=== PATIENT | female | born 1980 | race Caucasian/White ===

== ENCOUNTER → 2018-07-29 03:20 | Observation (INO) ==
[2018-07-29 01:01] LABS: Bilirubin,Urine Negative (Negative); Blood,Urine Large (Negative); Clarity,Urine Turbid (Clear); Color,Urine Yellow (Yellow); Glucose,Urine (UA) Normal (Normal); Ketones,Urine Negative (Negative); Leukocyte Esterase,Urine Trace (Negative); Nitrite,Urine Negative (Negative); PH,Urine 6.5 pH Units (5.0-8.0); Protein,Urine Trace mg/dL (Neg-Trace); Specific Gravity,Urine 1.015 (1.010-1.025); Urobilinogen,Urine Normal (Normal)
[2018-07-29 01:09] LABS: Amphetamine Screen,Urine Negative ng/mL (Cutoff=1000); Barbiturate Screen,Urine Negative ng/mL (Cutoff=200); Benzodiazepines Screen,Urine Negative ng/mL (Cutoff=200); Cannabinoid Screen,Urine Negative ng/mL (Cutoff = 50); Cocaine Screen,Urine Negative ng/mL (Cutoff= 300); Opiate Screen,Urine Negative ng/mL (Cutoff=300); Phencyclidine Screen,Urine Negative ng/mL (Cutoff=25)
[2018-07-29 01:21] LABS: RBC,Urine 30-50 per hpf (0-3); Squamous Epithelial Cell,Urine Many per lpf (None-Few)
--- NOTE | 2018-07-29 01:50 | OB/GYN History & Physical ---
Date of Encounter: 08/01/18 Time of Encounter: 01:30 Assessment and Plan (1) Vaginal bleeding Status: Acute 38yo at 34+5wks GA who presents with vaginal bleeding 1. Vaginal bleeding - hx of low-lying placenta, resolved on 07/01 - patient seen by MFM at [facility] [place] [facility] [place], next appt today at 11AM - reports to have bled through 1 panty liner - denies leaking of fluid, not currently with vaginal bleeding - denies contraction(s), reports active fetus - denies recent intercourse or vaginal penetration - SSE with dark brown (old blood in vault), no active bleeding - TAUS performed, posterior placenta,normal appearing without placental hemorrhage - subjectively normal fluid, active fetus - ABO: A positive, will hold on labs given normal VS and no active vaginal bleeding 2. MWB - normotensive - VSS, HDS, afebrile - UTD PNC with 3. FWB - RNST for GA - S = D - posterior placenta Dispo: Patient kept on CEFM for 3hr. If RNST, OK to DC patient to home with plan to KEEP OB appt with MFM today at 11AM. Recommended pelvic rest given recent vaginal bleeding. Unable to appreciate abnormality in TAUS despite inadequate quality images. Color Doppler placed between head and cervix - no vasculature appreciated. Patient given precaution(s). Will have patient f /u in office with Dr. Kaur this week. 3hr strip was R&R for GA. moderate variability, excellent movement. She continued to have no active vaginal bleeding during her EFM. Patient was DC to home with F/U in the office scheduled later this week. MD BOGDAN History of Present Illness Chief complaint: Vaginal bleeding HPI: Ms. Peng is a 38 year old female at 34+6wks GA who presents with vaginal bleeding. Patient reports hx of vaginal bleeding during 1st and 2nd TM, last bleed appreciated at 20wks GA. Was told to have had a partial previa that was followed by MFM at [facility] [place]. Most recent US was performed by MFM on 07/01, showing a portion of the placenta in the lower uterine segment, and at closest measurement - 2cm away from the cervical os. head was well-applied at that time as there was no concern for placenta previa nor partial previa. The paitent was told to f/u with MFM in 4 weeks for repeat US, but was otherwise given no precaution(S). This pregancy is complicated by PCOS ( patientis on metformin 5000mg daily) and metoprolol. She is followed closely by Dr. Real and aside from this (now resolved diagnosis) of a low-lying placenta, she is otherwise obstetrically uncomplicated. Her OBHX is consistent with full term vaginal deliveries, as she plans to move forward with a this as well. The patient is scheduled for a repeat US with MFM today (11AM) in [place] at [facility] [place]. Denies ZAMARRIPA/CP/SOB. Normotensive. VSS, HDS, afebrile. Past Med Surg Social Fam HX - Past Medical History Source: patient Medical history: no medical history, non-contributory Additional medical history: PCOS - on metformin daily (5000mg). PIH - metoprolol (unsure of dose) Psychiatric history: no psych history - Past Surgical History Surgical History: cholecystectomy - Social History Smoking Status: Never smoker Smokeless Tobacco Status: No Alcohol use: none Drug use: none - Family History Father Living Status: Obstetrical History - Pregnancies : 5 Para: 2 Term: 2 Ab's: 2 Livin Medications and Allergies Metformin HCl [Metformin HCl ER] 500 mg PO 02/03/16 [History] Ondansetron HCl [Zofran] 4 mg PO TID PRN #10 tablet 02/03/16 [Rx] One Daily Tablet 1 mg PO DAILY 07/29/18 [History] 3 Allergy/AdvReac Type Severity Reaction Status Date / Time No Known Allergies Allergy Verified 02/03/16 12:50 Exam - Constitutional Constitutional: well developed - Neck Neck exam: full ROM - Lungs Respiratory exam: CTAB - Cardiovascular Cardiovascular exam: RRR - Abdomen Abdomen: Present: gravid, non tender - Extremities Extremities exam: radial pulses palpable and symmetrical - Vagina Vagina: Present: normal moisture - Cervix Dilation: 0 Effacement: 50 Station: -3 - Comments Comments: abdominal exam: nonTTP, gravid, S = D pelvic: SSE performed with light, dark red/brown blood appreciated. No active bleeding in vault. SVE performed: cl/th/hi. TAUS performed: vertex presentation with subjectively normal fluid. head well-applied. NO previa appreciated. Posterior placenta visualized. Results Result Diagrams: 07/29/18 02:13 Abnormal lab results Urine Clarity Turbid (Clear) A 07/29/18 00:47 Urine Blood Large (Negative) H 07/29/18 00:47 Ur Leukocyte Esterase Trace (Negative) H 07/29/18 00:47 Urine Microscopic RBC 30-50 per hpf (0-3) H 07/29/18 00:47 Urine Microscopic WBC 3-5 per hpf (0-3) H 07/29/18 00:47 Ur Squamous Epith Cells Many per lpf (None-Few) H 07/29/18 00:47 Ur Culture Indicated? NO. (NO) A 07/29/18 00:47 All other labs normal. - VTE Reasons for not Prescribing Prophylaxis: Treatment not Indicated - Low risk for VTE
[2018-07-29 02:24] LABS: Hemoglobin 12.5 g/dL (11.5-15.4); Mean Corpuscular HGB Conc 35.7 g/dL (31.6-35.5); Mean Corpuscular Hemoglobin 32.7 pg (28.0-33.3); Mean Corpuscular Volume 91.6 fL (83.0-100.0); Platelet Count 200 K/mcL (140-400); Red Blood Count 3.82 M/mcL (3.82-4.97); Red Cell Distribution Width 14.2 % (11.5-14.5)
== END | disposition home or self-care (01) ==
LOC: 1NENULAB
PROVIDERS: ADMIT Obstetrics & Gynecology; ATTEND Obstetrics & Gynecology

== ENCOUNTER 2018-08-15 22:00 | Inpatient (IN) ==
[2018-08-15] MEDS ORDERED: miSOPROStol 25 MCG TABLET PO PRN (22:55)
[2018-08-15] MEDS ORDERED: Famotidine 20 MG/2 ML VIAL IVP PRN (22:55)
[2018-08-15] MEDS ORDERED: Metoclopramide 10 MG/2 ML VIAL IVP PRN (22:55)
[2018-08-15] MEDS ORDERED: Ondansetron 4 MG/2 ML VIAL IVP PRN (22:55)
[2018-08-15] MEDS ORDERED: *HR* Nalbuphine 10 MG/ML AMPUL IVP PRN (22:55)
[2018-08-15] MEDS ORDERED: Naloxone 0.4 MG/ML INJ IVP PRN (22:55)
[2018-08-15] MEDS ORDERED: Oxytocin 20 units/ LR 1000 mL 20 UNIT/1,000 ML BAG IVC SCH (23:00)
[2018-08-15] MEDS ORDERED: Ringers Solution, Lactated 1,000 ML IVC SCH (23:00)
[2018-08-15] MEDS ORDERED: Lidocaine -MPF 1% 2 ML VIAL ONE (23:05)
[2018-08-15 23:40] LABS: Basophils % 0.3 %; Eosinophils # 0.1 K/mcL (0.0-0.6); Eosinophils % 0.6 %; Hematocrit 40.7 % (35.3-44.9); Hemoglobin 13.7 g/dL (11.5-15.4); Immature Granulocytes % 1.3 % (0-4); Lymphocytes # 2.2 K/mcL (0.6-4.6); Lymphocytes % 23.5 %; Mean Corpuscular HGB Conc 33.7 g/dL (31.6-35.5); Mean Corpuscular Volume 95.1 fL (83.0-100.0); Mean Platelet Volume 10.6 fL (9.4-12.4); Monocytes # 0.7 K/mcL (0.0-1.3); Neutrophils # 6.3 K/mcL (1.6-8.9); Platelet Count 224 K/mcL (140-400); Red Blood Count 4.28 M/mcL (3.82-4.97); Red Cell Distribution Width 13.6 % (11.5-14.5); Segmented Neutrophils % 67.3 %
[2018-08-15 23:49] LABS: Amphetamine Screen,Urine Negative ng/mL (Cutoff=1000); Barbiturate Screen,Urine Negative ng/mL (Cutoff=200); Benzodiazepines Screen,Urine Negative ng/mL (Cutoff=200); Cannabinoid Screen,Urine Negative ng/mL (Cutoff = 50); Cocaine Screen,Urine Negative ng/mL (Cutoff= 300); Opiate Screen,Urine Negative ng/mL (Cutoff=300); Phencyclidine Screen,Urine Negative ng/mL (Cutoff=25)
[2018-08-16] MEDS ORDERED: EPHEDrine 50 MG/ML VIAL IVP PRN (01:52)
--- NOTE | 2018-08-16 01:55 | Anesthesia Evaluation PreOp ---
Date of Encounter: 08/16/18 Time of Encounter: 01:59 - Past History Planned Operation: vaginal del, induction for unexp vag blee Cardiac History: Arrhythmia (baseline tachycardia, (105-140's) been taking metoprolol...seen cardio during this . ECHO done = normal.) Pulmonary History: Denies Any Significant HX SATELLITE DISH TECHNICIAN History: Other (anemia, reports metformin for polycystic ovarian) Other Medical History: Denies Any Significant HX Anesthesia History: No Prior Anesthetic Complications, Past Anesthesia Alcohol Use: none Drug use: none Medications and Allergies Metformin HCl [Metformin HCl ER] 500 mg PO 02/03/16 [History] One Daily Tablet 1 mg PO DAILY 07/29/18 [History] Azithromycin [Azithromycin 6-Tab Pack] 08/15/18 [History] 3 Allergy/AdvReac Type Severity Reaction Status Date / Time No Known Allergies Allergy Verified 02/03/16 12:50 Anesthesia Results - Labs 08/15/18 23:27 Anesthesia Exam - HEENT Pupil (Motor): Pupils equal Mallampati: II Teeth: Normal Oral Opening: Greater than 3 - SATELLITE DISH TECHNICIAN LOC: Oriented SATELLITE DISH TECHNICIAN Motor: Normal RUE, Normal LUE, Normal RLE, Normal LLE, Normal Face SATELLITE DISH TECHNICIAN Sensory: Normal: RUE, LUE, RLE, LLE, Face - Cardiac Rhythm: Regular Murmur: None - Pulmonary Breath Sounds: bilateral Clear Respiratory Effort: Symmetrical Anesthesia Assess/Plan ASA Score: 3 Modified [place] Scale for Level of Consciousness: Cooperative, oriented, and tranquil Anesthetic Plan: General, Regional Monitoring Plan: Standard Monitors Recovery Plan: PACU
[2018-08-16] MEDS ORDERED: Epidural Premix (fent/bupiv) 110 ML EP SCH (02:00)
[2018-08-16] MEDS ORDERED: Lidocaine -MPF 2% 5 ML VIAL ONE (02:32)
--- NOTE | 2018-08-16 08:57 | OB/GYN Progress Note ---
Date of Encounter: 08/16/18 Time of Encounter: 08:15 - Assessment and Plan (1) 38 weeks gestation of Current Visit: Yes Status: Acute (2) Encounter for induction of labor Current Visit: Yes Status: Acute (3) Bleeding of cervix Current Visit: Yes Status: Acute Subjective - Subjective Principal diagnosis: induction Interval history: 38-year-old female scheduled for early induction due to recommendations by maternal medicine for abnormal cervical vasculature. MFM stated this patient will bleed heavily with dilation of cervix. Eli induction was recommended Not cervix. This was attempted today. Patient bled significantly and Eli was removed because of this. SVE 4-80/-2 Antepartum ROS: movement normal Objective - Vital Signs Vital Signs: Intake and Output 08/15/18 08/16/18 08/16/18 23:59 07:59 15:59 Other: Weight 100.698 kg - Exam FHR: category 1 Abdomen: Present: soft, gravid Uterus: Present: normal Cervical dilation: 4 Cervix effacement: 70 station: -2
--- NOTE | 2018-08-16 09:41 | OB/GYN History & Physical ---
Date of Encounter: 08/16/18 Time of Encounter: 08:00 Assessment and Plan (1) 38 weeks gestation of Current visit: Yes Status: Acute (2) Encounter for induction of labor Current visit: Yes Status: Acute (3) Bleeding of cervix Current visit: Yes Status: Acute History of Present Illness Chief complaint: induction of labor HPI: Ms. Peng is a 38 year old female at 37.2 weeks for induction of labor. Patient was seen by maternal medicine. Patient had very large unexplained third trimester bleed. [facility] recommendation was to deliver at 37 weeks. On presentation patient's cervix was 2 cm 50% effaced and -2 station. She is known to have very large vasculature around the cervix itself. Maternal medicine feels that all the bleeding is coming from the cervix. She has been thoroughly evaluated by them and none of this is coming from baby or placenta she has no drug allergies. She is currently on metformin, metoprolol, iron sulfate and her vitamin. Chronic medical conditions include polycystic ovarian syndrome, tachycardia, third trimester bleeding. Surgical history is negative. She has no history of abnormal Pap smears, STDs or pelvic infections. She has a history of abnormal breast findings. Socially she denies tobacco, alcohol, illicit drug use. Obstetric history significant for 2 term vaginal deliveries. Both complicated by gestational diabetes and hemorrhage. Family history significant for diabetes and pancreatic cancer. Past Med Surg Social Fam HX - Past Medical History Medical history: no medical history, non-contributory Additional medical history: PCOS - on metformin daily (5000mg). PIH - metoprolol (unsure of dose) Psychiatric history: no psych history - Past Surgical History Surgical History: cholecystectomy - Social History Smoking Status: Never smoker Smokeless Tobacco Status: No Alcohol use: none Drug use: none - Family History Father History Unknown: Yes Family Member Ethnicity: Non- Living Status: Hx Family Cardiac Disorders: Yes (history of NH) Obstetrical History - Pregnancies : 5 Para: 2 Term: 2 Ab's: 2 Livin Medications and Allergies Metformin HCl [Metformin HCl ER] 500 mg PO 02/03/16 [History] One Daily Tablet 1 mg PO DAILY 07/29/18 [History] Azithromycin [Azithromycin 6-Tab Pack] 08/15/18 [History] 3 Allergy/AdvReac Type Severity Reaction Status Date / Time No Known Allergies Allergy Verified 02/03/16 12:50 Review of System OB All systems PM: reviewed and no additional remarkable complaints except as stated Exam - Constitutional Constitutional: well developed, well nourished, no acute distress, average body habitus - HEENT HEENT: PERRL, Normocephaly - Neck Neck exam: full ROM, normal inspection - Lungs Respiratory exam: CTAB - Cardiovascular Cardiovascular exam: RRR - Abdomen Abdomen: Present: bowel sounds normal - Extremities Extremities exam: full ROM, normal inspection Deep Tendon Reflex Grade: 0 Absent - Vulva Vulva: bilateral: normal - Vagina Vagina: Present: normal moisture - Cervix Cervix: Present: friable Dilation: 3 Effacement: 70 - Uterus Uterus exam: Present: normal size Results Result Diagrams: 08/15/18 23:27 All other labs normal. - VTE Reasons for not Prescribing Prophylaxis: Treatment not Indicated - Low risk for VTE
--- NOTE | 2018-08-16 14:32 | OB/GYN Progress Note ---
Date of Encounter: 08/16/18 Time of Encounter: 14:30 - Assessment and Plan (1) 38 weeks gestation of Current Visit: Yes Status: Acute (2) Encounter for induction of labor Current Visit: Yes Status: Acute (3) Bleeding of cervix Current Visit: Yes Status: Acute Subjective - Subjective Principal diagnosis: AROM Interval history: 38-year-old female admitted for induction of labor at 37 weeks and 2 days with known third trimester bleed. MFM encouraged delivery early because of heavy bleeding. Eli catheter had been removed earlier because of heavy bleeding. At this time patient has been miriam for 4 hours. Pitocin currently on 16 milliunits. At this point artificial rupture membranes is necessary to increase contraction pattern. AROM was performed with clear fluid. Again a large amount of blood just with touching the cervix on this patient. Category 1 tracing throughout the entire procedure. I have been assured by maternal medicine that this bleeding is coming from the cervix and not related to baby or placenta. Antepartum ROS: vaginal bleeding Objective - Vital Signs Vital Signs: Intake and Output 08/15/18 08/16/18 08/16/18 23:59 07:59 15:59 Other: Weight 100.698 kg
[2018-08-16] MEDS ORDERED: *HR* FentaNYL (PF) 100 MCG/2 ML VIAL ONE (16:24)
[2018-08-16] MEDS ORDERED: Bupivacaine-MPF 0.25% 10 ML VIAL ONE (16:29)
--- NOTE | 2018-08-16 17:06 | Anesthesia Procedures ---
Date of Encounter: 08/16/18 Time of Encounter: 16:26 Procedures: Anesthesia - Epidural/Spinal Patient ID/Chart reviewed: Yes Patient examined: Yes OB Eval: Gestational age: 37 OB Eval: : 5 OB Eval: Hx Para: 2 OB Eval: Dilated at (cm): 3 OB Eval: Contractions: Non-stressed pattern Consent Obtained: Yes Supplemental Oxygen: None/Room Air Site Prep: Aseptic Technique, Sterile prep and drape, Povidone-Iodine 1% Patient position: upright Local Anesthetic: Lidocaine 1% Amount of Local Anesthetic used: 3 Touhy Needle Gauge: 18 Touhy Needle Depth (cm): 7 Catheter Depth at Skin (cm): 14 Test Dose (1.5% Lido + Epi): Volume given (mls): 3 Test Dose Result: Negative Loading Dose: 0.25% Marcaine (mls): 8 Loading Dose: Fentanyl (mcg): 100 Loading Dose Administered: Thru Catheter Infusion Med: 0.125% Bupivacaine w/ 2 mcg/ml Fentanyl Infusion Rate (mls/hr): [address]: Tegaderm, Tape Interspace Used: L3-L4 Loss of Resistance (NAILA): Yes Blood: No CSF: No Paresthesia: No Vitals + FHT's: 3 Vital Signs Time 1626 1644 1650 1655 BP 145/69 150/75 141/73 139/84 Pulse 94 109 88 93 FHTs 130 130 130 130
--- NOTE | 2018-08-16 19:14 | OB/GYN Procedure Note ---
Delivery - Delivery Date: 08/16/18 Provider: Dyllan Real Intrapartum events: other(please specify) Delivery induction: oxytocin Delivery augmentation: rupture of membranes, pitocin Delivery monitor: external FHT, external uterine Anesthesia: epidural Quantitated Blood Loss: 300 - Infant (s) Infant A Infant Delivery Date: 08/16/18 Infant Delivery Time: 18:56 Presentation: vertex Position: OA Route of delivery: Gender: Male Viability: Viable Pounds: 7 Ounces: 3 Weight Gram: 3.26 kg at 1 minute: 9 at 5 mins: 9 Shoulder Dystocia: not encountered Specimens collected: cord blood Placenta: spontaneous - Repair Episiotomy: none Laceration Description: None - Complications Delivery complications: bleeding site unknown - Disposition Mom disposition: stable in LDR [place] disposition: stable in LDR - Comments Comments: Patient was induced because of third trimester bleeding of unknown etiology. MFM believed completely cervical in nature. Patient had bled considerably during labor induction. Once artificial rupture membranes was performed this patient progressed rapidly to complete and pushing and had a spontaneous vaginal delivery of a male infant over an intact perineum. Infant's head was in the perineum easily. The rest of the was then delivered with 1 push. The cried immediately upon delivery. Cord was cut to cut the was in past nurse in attendance. Cord bloods obtained. Placenta was delivered spontaneously and intact. There are no cervical, vaginal, periurethral, or perineal lacerations noted. Patient with her male infant weight 7 lbs. 3 oz. with Apgars 9 at 1 minute and 9 at 5 minutes. patient did have uterine atony or bleeding from unknown etiology. Patient was given a dose of Methergine and then Cytotec rectally to help control bleeding. Patient has a history of hemorrhage with her last child
[2018-08-16] MEDS ORDERED: Measles/Mumps/Rubella Vacc 0.5 ML VIAL SQ PRN (21:42)
[2018-08-16] MEDS ORDERED: Acetaminophen 325 MG TABLET PO PRN (21:42)
[2018-08-16] MEDS ORDERED: Oxytocin 20 units/ LR 1000 mL 20 UNIT/1,000 ML BAG IVC SCH (21:42)
[2018-08-17 05:24] LABS: Basophils % 0.2 %; Eosinophils % 0.3 %; Hematocrit 29.9 % (35.3-44.9); Lymphocytes # 1.7 K/mcL (0.6-4.6); Lymphocytes % 15.1 %; Mean Corpuscular HGB Conc 34.4 g/dL (31.6-35.5); Mean Corpuscular Hemoglobin 32.6 pg (28.0-33.3); Mean Corpuscular Volume 94.6 fL (83.0-100.0); Mean Platelet Volume 10.3 fL (9.4-12.4); Monocytes # 0.7 K/mcL (0.0-1.3); Monocytes % 6.3 %; Neutrophils # 8.7 K/mcL (1.6-8.9); Platelet Count 199 K/mcL (140-400); Red Blood Count 3.16 M/mcL (3.82-4.97); Red Cell Distribution Width 13.7 % (11.5-14.5); Segmented Neutrophils % 77.1 %
[2018-08-17 05:25] LABS: Hemoglobin 10.3 g/dL (11.5-15.4)
[2018-08-17] MEDS ORDERED: Prenatal Vit/FA 1 EACH TABLET PO SCH (09:00)
[2018-08-17] MEDS: Ibuprofen 600 MG TABLET PO PRN ×2 (09:51→15:56)
--- NOTE | 2018-08-17 10:12 | Discharge Summary ---
Date of Encounter: 08/17/18 Time of Encounter: 10:12 - Discharge Diagnosis (1) Status post vaginal delivery Priority: Primary Status: Acute Comments: Patient is ambulating well. She is breast-feeding, has breast pump at home. Eating and drinking without problems. No BM yet but is urinating without pain. Light vaginal bleeding. Pain is well controlled with pain medication. Does not desire control at this point. She states her mood is good and she is stable for discharge. Anticipate discharge later tonight. (2) Bleeding of cervix Priority: Secondary Status: Acute Comments: Well-controlled postdelivery. - Discharge Medications Prescriptions: Ibuprofen [Motrin] 600 mg PO Q6HR PRN 30 Days #120 tablet PRN Reason: cramping Home Medications: Metformin HCl [Metformin HCl ER] 500 mg PO 02/03/16 [History] One Daily Tablet 1 mg PO DAILY 07/29/18 [History] Azithromycin [Azithromycin 6-Tab Pack] 08/15/18 [History] Docusate [Colace] 100 mg PO BID capsule 08/17/18 [Rx] Ibuprofen [Motrin] 600 mg PO Q6HR PRN 30 Days #120 tablet 08/17/18 [Rx] Measles/Mumps/Rubella Vacc [MMR II Vaccine with Diluent] 0.5 ml SQ AD PRN vial 08/17/18 [Rx] Vit/FA 1 each PO DAILY tablet 08/17/18 [Rx] Allergies/Adverse Reactions: 3 Allergy/AdvReac Type Severity Reaction Status Date / Time No Known Allergies Allergy Verified 02/03/16 12:50 Data Procedures and tests throughout hospitalization: Laboratory Tests 08/15/18 08/15/18 08/17/18 23:27 23:27 05:09 WBC 9.3 11.2 H RBC 4.28 3.16 L Hgb 13.7 10.3 L D Hct 40.7 29.9 L MCV 95.1 94.6 MCH 32.0 32.6 MCHC 33.7 34.4 RDW 13.6 13.7 Plt Count 224 199 MPV 10.6 10.3 Immature Gran % 1.3 1.0 Seg Neutrophils % 67.3 77.1 Lymphocytes % 23.5 15.1 Monocytes % 7.0 6.3 Eosinophils % 0.6 0.3 Basophils % 0.3 0.2 Neutrophils # 6.3 8.7 Lymphocytes # 2.2 1.7 Monocytes # 0.7 0.7 Eosinophils # 0.1 0.0 Basophils # 0.0 0.0 Urine Opiates Screen Negative Ur Barbiturates Screen Negative Ur Phencyclidine Scrn Negative Ur Amphetamines Screen Negative U Benzodiazepines Scrn Negative Urine Cocaine Screen Negative U Marijuana (THC) Screen Negative Ur Drug Screen Interp See Below Labs on day of discharge: Labs from last 24 hours 08/17/18 05:09 WBC 11.2 H RBC 3.16 L Hgb 10.3 L D Hct 29.9 L MCV 94.6 MCH 32.6 MCHC 34.4 RDW 13.7 Plt Count 199 MPV 10.3 Immature Gran % 1.0 Seg Neutrophils % 77.1 Lymphocytes % 15.1 Monocytes % 6.3 Eosinophils % 0.3 Basophils % 0.2 Neutrophils # 8.7 Lymphocytes # 1.7 Monocytes # 0.7 Eosinophils # 0.0 Basophils # 0.0 Date of admission: 08/15/18 22:29 Primary care physician: Venkata Euceda MD Consults: 08/16/18 21:42 Consult to Shearing Machine Operator [CONS] Routine Comment: Vaginal delivery, consult needed Discharging clinician: Priti Valdez Anticipated date of discharge: 08/17/18 - Patient Status Disposition: Home, Self-Care Condition: Good Functional capacity at discharge: independent ambulation Overall status at discharge: patient is progressing back to baseline - Discharge Instructions Follow Up With: Venkata Euceda MD [Primary Care Provider] - Dyllan Real MD [Partnered Physician] - Additional Instructions: - Follow up with Dr. Real in office in four weeks time. - Contact the office should you develop any significant vaginal bleeding, feelings of hopelessness or worthlessness, or thoughts of harming yourself or others - Continue with ibuprofen 600mg every 6 hours for pain. - Do not lift objects heavier than baby for the next month. - Nothing vaginally for the next 6 weeks as you continue to heal. - Diet and Activity Activity: increase activity as tolerated Diet: advance to your usual diet Hospital Course MANAGER BUDGET Hospital course: Delivery - Delivery Date: 08/16/18 Provider: Dyllan Real Intrapartum events: other(please specify) Delivery induction: oxytocin Delivery augmentation: rupture of membranes, pitocin Delivery monitor: external FHT, external uterine Anesthesia: epidural Quantitated Blood Loss: 300 - (s) Infant A Infant Delivery Date: 08/16/18 Delivery Time: 18:56 Presentation: vertex Position: OA Route of delivery: Gender: Male Viability: Viable Pounds: 7 Ounces: 3 Weight Gram: 3.26 kg at 1 minute: 9 at 5 mins: 9 Shoulder Dystocia: not encountered Specimens collected: cord blood Placenta: spontaneous - Repair Episiotomy: none Laceration Description: None - Complications Delivery complications: bleeding site unknown - Disposition Mom disposition: stable in disposition: stable in - Comments Comments: Patient was induced because of third trimester bleeding of unknown etiology. MFM believed completely cervical in nature. Patient had bled considerably during labor induction. Once artificial rupture membranes was performed this patient progressed rapidly to complete and pushing and had a spontaneous vaginal delivery of a male infant over an intact perineum. 's head was in the perineum easily. The rest of the infant was then delivered with 1 push. The cried immediately upon delivery. Cord was cut to cut the was in past nurse in attendance. Cord bloods obtained. Placenta was delivered spontaneously and intact. There are no cervical, vaginal, periurethral, or perineal lacerations noted. Patient with her male infant weight 7 lbs. 3 oz. with Apgars 9 at 1 minute and 9 at 5 minutes. patient did have uterine atony or bleeding from unknown etiology. Patient was given a dose of Methergine and then Cytotec rectally to help control bleeding. Patient has a history of hemorrhage with her last child Time Attestation: Total time spent providing and/or coordinating discharge services: Time Spent: Less than 30 minutes Exam - Constitutional Vitals: Temp Pulse Resp BP Pulse Ox 98.2 F 109 16 116/73 97 08/17/18 03:58 08/17/18 03:58 08/17/18 03:58 08/17/18 03:58 08/17/18 03:58 General appearance IM: A&O X 3, pleasant, no acute distress, answers questions appropriately - Respiratory Respiratory exam: Present: CTAB - Cardiovascular Cardiovascular exam IM: Present: RRR - GI/Abdominal GI/Abdominal exam IM: normal bowel sounds - Uterine Tone: Firm Uterus Position: 1 Finger Below Umbilicus - Extremities Exam Extremities exam IM: Present: full ROM - Neurological Exam Neurological exam: alert, oriented X3 - Psychiatric Additional comments: states mood is "good" - VTE Reasons for not Prescribing Prophylaxis: Treatment not Indicated - Low risk for VTE - Attending Attestation I have seen this patient and agree with evaluation. -Layne Kenny CNM
[2018-08-17 16:20] VITALS: BP 141/88
[2018-08-17] MEDS ORDERED: miSOPROStol 100 MCG TABLET PO ONE (22:04)
[2018-08-17] MEDS ORDERED: Methylergonovine 0.2 MG/ML AMPUL IM ONE (22:04)
== END 2018-08-17 22:05 | disposition home or self-care (01) | DRG 774 ==
LOC: 1NENULAB 22:29 → 1NENUOBS 08-16 21:35
PROVIDERS: ADMIT Obstetrics & Gynecology; ATTEND Obstetrics & Gynecology